=== PATIENT | female | born 1955 | race African-American/Black ===

== ENCOUNTER 2016-10-03 16:11 | Inpatient (IN) ==
[2016-10-03] MEDS ORDERED: metroNIDAZOLE INJ 500 MG in PREMIX 1 EACH IV STA (17:16)
[2016-10-03] MEDS ORDERED: CIPROFLOXACIN INJ 400 MG in PREMIX 1 EACH IV STA (17:16)
--- NOTE | 2016-10-03 17:18 | Emergency Department Note ---
Nora Lee Brittany, am scribing for, and in the presence of, Brianna Stephenson DO 16: 50. ISachin Debra, DO, personally performed the services described in this documentation, ascribed by Corry Melendez in my presence, and it is both accurate and complete . Arrival - Arrival Chief Complaint: Abdominal / Flank Pain Stated Complaint: SENT BY DR MOSS OFFICE ED Nursing Triage Note: C/o RLQ pain-onset 3 days ago. Patient was sent from Dr. Mcdonald's office for further evaluation of diverticulitis with possible abscess. Denies N/V/D. Mode of Arrival: Wheelchair Limitations: No Limitations Source: Patient - History of Present Illness HPI Narrative: This is a 60 y/o black female,who presents to the ED for further evaluation of possible diverticulitis. She states she was being seen at Dr. Cifuentes's office for abd pain which started 1 week ago, and has gotten worse over the past 3 days. She localizes the pain to the RLQ. She denies any nausea or vomiting but notes some chills and a fever. Pt has no other complains/pain in the ED at this time. Pt has a PMHx of HTN, dyslipidemia, and thyroid disorder. Pt has had a tonsilectomy, (3), and a thyroid disorder. Pt denies a family medical Hx. Pt denies a social Hx. Onset (ago): week(s) (Started last week) Consistency: constant Severity: moderate Date of Last Menstrual Period: menopause Allergies/Adverse Reactions: Allergies Allergy/AdvReac Type Severity Reaction Status Date / Time codeine AdvReac Vomiting Verified 10/03/16 16:18 Home Medications: Home Medications Medication Instructions Recorded Confirmed Type Levothyroxine Tab [Synthroid Tab] 137 mcg PO QAM 10/03/16 10/03/16 History hydroCHLOROthiazide 12.5 mg PO QAM PRN 10/03/16 10/03/16 History [Hydrochlorothiazide] Review of System - Review of System 12 point system: reviewed and no additional remarkable complaints except as stated - Review of System Constitutional: Present: chills, fever Gastrointestinal: Present: abdominal pain. Absent: nausea, vomiting Medical,Surgical,& Family Hx - Medical History Cardio: History of: Hypertension Endocrine: History of: Dyslipidemia, Thyroid Disorder - Surgical History HEENT Surgeries: Surgical HX of: Thyroid Surgery, Tonsilectomy & Adenoidectomy Abdominal Surgeries: Patient denies: Appendectomy, Cholecystectomy Reproductive Surgeries: Surgical HX of;: Section (X 3) - Social History Smoking Status: Never smoker Frequency of Alcohol Use: None Type of Drug Use: None Exam Vital Signs: Vital Signs Temperature 98.3 F 10/03/16 16:15 Pulse Rate 91 H 10/03/16 16:15 Respiratory Rate 18 10/03/16 16:15 Blood Pressure 177/92 10/03/16 16:15 O2 Sat by Pulse Oximetry 98 10/03/16 16:15 - General General appearance: alert, in no apparent distress - Head Head exam: Present: atraumatic, normocephalic, normal inspection - Eye Eye exam: Present: normal appearance, PERRL, EOMI. Absent: nystagmus, miosis, mydriasis - ENT ENT exam: Present: normal exam, normal oropharynx, mucous membranes moist, TM's normal bilaterally, normal external ear exam - Neck Neck exam: Present: normal inspection, full ROM, trachea midline. Absent: tenderness, meningismus, lymphadenopathy, thyromegaly - Chest Chest inspection: Present: normal inspection, symmetric chest wall rise. Absent : tenderness, rash, abscess - Respiratory Respiratory exam: Present: normal lung sounds bilaterally. Absent: rales, respiratory distress, rhonchi, stridor, wheezes - Cardiovascular Cardiovascular exam: Present: regular rate, normal rhythm, normal heart sounds. Absent: murmur, rubs, gallop, clicks, JVD - Abdominal Exam Abdominal exam: Present: soft, tenderness (RLQ tendenress as well as RUQ tenderness), guarding (Mild Guarding ), normal bowel sounds. Absent: distention , rebound, rigidity - Rectal Exam Rectal exam: Present: deferred - Extremities Exam Extremities exam: Present: normal inspection, full ROM, normal capillary refill. Absent: tenderness, pedal edema, joint swelling, calf tenderness - Back Exam Back exam: Present: normal inspection, full ROM. Absent: tenderness, muscle spasm, rashes - Neurological Exam Neurological exam: Present: alert, oriented X3, CN II-XII intact. Absent: motor sensory deficit - Psychiatric Psychiatric exam: Present: normal affect, normal mood. Absent: depressed, agitated, anxious, flat affect, manic - Skin Skin exam: Present: warm, dry, intact, normal color. Absent: rash, cyanosis, diaphoresis, erythema, pallor, mottled Course Course Narrative: pt will be admitted to hospitalist, is in stable condition . Disposition Clinical Impression: Diverticulitis Case discussed with: patient Disposition: Still a Patient Condition: Stable Time of Disposition: 17:18
[2016-10-03] MEDS ORDERED: metroNIDAZOLE 500 MG/100 ML PREMIX IV ONE (17:28)
[2016-10-03] MEDS ORDERED: CIPROFLOXACIN 400 MG/200 ML PREMIX IV ONE (17:28)
[2016-10-03] MEDS ORDERED: BISACODYL 5 MG TABLET PO PRN (17:59)
[2016-10-03] MEDS ORDERED: ONDANSETRON 4 MG/2 ML VIAL IV PRN (17:59)
[2016-10-03] MEDS ORDERED: ACETAMINOPHEN 325 MG TABLET PO PRN (17:59)
[2016-10-03] MEDS ORDERED: diphenhydrAMINE CAP 25 MG CAPSULE PO PRN (17:59)
[2016-10-03] MEDS ORDERED: DOCUSATE SODIUM 100 MG CAPSULE PO PRN (17:59)
[2016-10-03] MEDS ORDERED: guaiFENesin/DM ER 600-30 MG TABLET PO PRN (17:59)
[2016-10-03] MEDS ORDERED: PROMETHAZINE 25 MG/1 ML VIAL IM PRN (17:59)
[2016-10-03] MEDS ORDERED: MEPERIDINE 25 MG/1 ML VIAL IV PRN (18:10)
[2016-10-03] MEDS ORDERED: MEPERIDINE 50 MG TABLET PO PRN ×2 (18:10)
[2016-10-03] MEDS ORDERED: hydroCHLOROthiazide 12.5 MG CAPSULE PO PRN (18:12)
[2016-10-03] MEDS ORDERED: DEXTROSE 50% 25 GM/50 ML VIAL IV PRN (18:13)
[2016-10-03] MEDS ORDERED: GLUCAGON 1 MG VIAL IM PRN (18:13)
--- NOTE | 2016-10-03 18:21 | Hospitalist History & Physical ---
Assessment and Plan - Time spent with patient Time spent with patient: Greater than 30 minutes (1) Acute diverticulitis Status: Acute Assessment and plan: 60-year-old -[place] female with history of hypertension and hypothyroidism admitted by hospitalist service with acute sigmoid diverticulitis with developing phlegmon or abscess. Patient has been started on Cipro and Flagyl and clear liquid diet. She will be started on pain and nausea control medicines. Patient is n.p.o. after midnight and IR consulted for possible percutaneous drain placement in the morning. Patient's blood pressures and heart rate are elevated she takes HCTZ for home medicine. That has been started and Norvasc has been added. We will continue to monitor her blood pressures. Patient also has pitting lower extremity edema so we will discuss with Dr. Martinez about maybe adding Lasix to her regimen or if she will require further workup for this. Patient also has a solid mass on her kidney with questionable neoplasm that Dr. Pierce from nephrology has been consulted to evaluate in the morning. Dr. Martinez will see and examine the patient and further recommendations to follow. Current Visit: Yes (2) Abdominal abscess Status: Acute Current Visit: Yes (3) Pitting edema Status: Acute Current Visit: Yes (4) Hypertension Status: Acute Current Visit: Yes (5) Diabetes Status: Acute Current Visit: Yes (6) Hypothyroidism Status: Acute Current Visit: Yes (7) Right kidney mass Status: Acute Current Visit: Yes History of Present Illness Chief complaint: Abdominal pain History of present illness: Ms. Sheriff is a 60 year old female with history of hypothyroidism and hypertension presenting to the ED from Dr. Sapp's office with abdominal pain due to diverticular abscess. Patient states she started hurting about 4 or 5 days ago in the bilateral lower quadrants. This was associated with fever and malaise. Patient states she went to Dr. Sapp's office this morning where he did a CT scan that shows acute sigmoid diverticulitis with developing phlegmon and/or abscess. There is also a solid mass within the upper pole of the right kidney that could not rule out neoplasm. She also has some borderline to minimally enlarged lymph nodes within the lower para-aortic region and mesenteric lymph nodes within the root of the mesentery. The patient is afebrile on admission she is tachycardic with elevated blood pressure and she is tender in both right and left lower quadrants. She also has bilateral pitting edema of the ankles that she states is new. Her white count is minimally elevated at 11.42, blood sugars 132 with an elevated hemoglobin A1c, creatinine is normal at 0.64. Patient denies headache, dysphagia, chest pain, shortness of breath, constipation or diarrhea. Patient's case was discussed with Dr. Setphenson the ED physician and Dr. Martinez the admitting hospitalist, and it was agreed patient will be admitted for further treatment and evaluation. Home Medications Medication Instructions Recorded Confirmed Type Levothyroxine Tab [Synthroid Tab] 137 mcg PO QAM 10/03/16 10/03/16 History hydroCHLOROthiazide 12.5 mg PO QAM PRN 10/03/16 10/03/16 History [Hydrochlorothiazide] Allergies Allergy/AdvReac Type Severity Reaction Status Date / Time codeine AdvReac Vomiting Verified 10/03/16 16:18 Medical,Surgical,& Family Hx - Medical History Cardio: History of: Hypertension Endocrine: History of: Diabetes Mellitus (NIDDM), Dyslipidemia, Thyroid Disorder - Surgical History HEENT Surgeries: Surgical HX of: Thyroid Surgery, Tonsilectomy & Adenoidectomy Abdominal Surgeries: Patient denies: Appendectomy, Cholecystectomy Reproductive Surgeries: Surgical HX of;: Section (X 3) - Family History Family History: Reports;: Family Heart Disease - Social History Smoking Status: Never smoker Frequency of Alcohol Use: None Type of Drug Use: None Marital Status: Lives With:: Spouse Functional capacity: independent ambulation Review of systems: A complete 10 system review of systems was obtained and pertinent positives and negatives per HPI Exam - Constitutional Exam: Constitutional System: No distress. [No] tremulousness. Head: Normocephalic, atraumatic. Ears, Nose and Throat System: No evidence of Otitis or Mastoiditis. No epistaxis or discharge Eyes System: Pupils equal, round, and reactive. Extraocular muscles intact. Neck: Supple, without adenopathy, [No] jugular venous distention. No thyromegaly , neck mass, Respiratory System: Chest [clear] to auscultation. Cardiovascular System: Heart with tachycardic rate and rhythm. [No] murmur. GI System: Abdomen [soft], tender to palpation in left greater than right quadrant. [Normo]active bowel sounds present. Musculoskeletal System: limbs with 2+ pitting pedal edema. Unable to palpate distal pulses due to edema. Neurological System: [No discernable] sensory deficit. [No] aphasia Psychiatric System: Conversation is [rational] Results - Labs Lab Results: I have reviewed the past 24 hour labs Labs: Labs from Dr. Cifuentes's office white blood cell 11.42, H&H 10.9/37.4, UA with trace leukocytes, blood glucose 132, creatinine 0.64, sodium 139, potassium 4.1, lipid panel normal, hemoglobin A1c 6.8 - Diagnostic Findings Procedure: CT Abdomen and Pelvis: report reviewed by me (Acute sigmoid diverticulitis with developing phlegmon or abscess. Solid mass within the upper pole of right kidney cannot rule out renal cell carcinoma. Borderline to minimally enlarged lymph nodes in the left para-aortic region and mesenteric region.)
[2016-10-03] MEDS: SODIUM CHLORIDE 0.9% 1,000 ML IV STA ×2 (20:28→21:00)
[2016-10-03] MEDS: ENOXAPARIN 40 MG/0.4 ML SYRINGE SUBCUT SCH ×2 (21:01→21:08)
[2016-10-03] MEDS: PIPERACILLIN/TAZOBACTAM 3,375 MG in SODIUM CHLORIDE 0.9% 100 ML IV SCH (21:01)
[2016-10-03] MEDS: SODIUM CHLORIDE 0.9% 1,000 ML IV SCH (21:02)
[2016-10-03] MEDS: INSULIN REGULAR 100 UNIT/ML SUBCUT SCH (21:38)
[2016-10-04] MEDS ORDERED: metroNIDAZOLE INJ 500 MG in PREMIX 1 EACH IV SCH
[2016-10-04] MEDS ORDERED: CIPROFLOXACIN INJ 400 MG in PREMIX 1 EACH IV SCH (02:00)
[2016-10-04] MEDS: SODIUM CHLORIDE 0.9% 1,000 ML IV SCH ×3 (02:27→22:44)
[2016-10-04] MEDS: PIPERACILLIN/TAZOBACTAM 3,375 MG in SODIUM CHLORIDE 0.9% 100 ML IV SCH ×3 (05:00→21:30)
[2016-10-04 07:33] LABS: Basophils % 0.1 % (0.0-0.8); Eosinophils # 0.1 10*3/uL (0.0-0.87); Eosinophils % 0.8 % (0.00-10.9); Hematocrit 34.6 VOL% (35.7-47.0); Hemoglobin 10.6 GM/DL (12.0-16.0); Immature Granulocytes % 0.4 %; Immature Granulocytes Absolute 0.04 #; Lymphocytes # 1.4 10*3/uL (1.4-4.0); Lymphocytes % 12.9 % (21.3-54.2); Mean Corpuscular HGB Conc 30.6 GM/DL (32-36); Mean Corpuscular Hemoglobin 24 PG (27-34); Mean Corpuscular Volume 78.8 FL (87-102); Mean Platelet Volume 9.9 FL (9.6-12.0); Monocytes # 0.7 10*3/uL (0.11-0.8); Monocytes % 6.8 % (1.7-12.7); Neutrophils # 8.4 10*3/uL (1.4-7.4); Platelet Count 345 T/CUMM (130-400); Red Blood Count 4.39 MC/CUMM (3.8-5.5); Red Cell Distribution Width 16.2 % (9.3-17.3); White Blood Count 10.6 T/CUMM (4-12)
--- NOTE | 2016-10-04 08:00 | General Surgery Consult Note ---
Assessment and Plan (1) Acute diverticulitis Status: Acute Assessment and plan: Associated with abscess/phlegmon formation. At this point, interventional radiology has been consulted for percutaneous drainage and the patient is clinically responding to IV antibiotics. Dr. Kennedy to follow with assessment and further recommendations as warranted. Current Visit: Yes History of Present Illness Chief complaint: Abdominal pain History of present illness: Ms. Sheriff is a 60 year old female with past medical history of hypertension, hypothyroidism, and sleep apnea who had no diverticulosis with no history of diverticulitis flare who was presenting to her primary care office yesterday for routine health assessment at which time she complained of progressive lower abdominal pain over the past 4-5 days associated with subjective fever and malaise. The patient denies nausea or vomiting. She reports cyclical diarrhea and constipation currently with loose stools. The patient reports since admission her pain has improved with virtual resolution of the right lower quadrant pain which has now more localized to the left lower quadrant. Clinic chart was sent with the patient for admission after CT scan revealed diverticulitis with abscess formation. Clinic tricuspid when she reviewed with CBC with differential BC 11.4, hemoglobin 10.9 and platelets 356. BMP was unremarkable. Urinalysis with trace leukocyte esterase, trace bacteria, and 2- 5 white blood cells per high-power field. A renal mass was also incidentally noted for which nephrology has been consulted. Home Medications Medication Instructions Recorded Confirmed Type Levothyroxine Tab [Synthroid Tab] 137 mcg PO QAM 10/03/16 10/03/16 History hydroCHLOROthiazide 12.5 mg PO QAM PRN 10/03/16 10/03/16 History [Hydrochlorothiazide] Allergies Allergy/AdvReac Type Severity Reaction Status Date / Time codeine AdvReac Vomiting Verified 10/03/16 16:18 Medical,Surgical,& Family Hx - Medical History Cardio: History of: Hypertension Endocrine: History of: Diabetes Mellitus (NIDDM), Dyslipidemia, Thyroid Disorder Respiratory: History of: Obstructive Sleep Apnea (noncompliant cpap) - Surgical History HEENT Surgeries: Surgical HX of: Thyroid Surgery, Tonsilectomy & Adenoidectomy Abdominal Surgeries: Patient denies: Abdominal Surgery, Appendectomy, Cholecystectomy Reproductive Surgeries: Surgical HX of;: Section (X 3) - Family History Family History: Reports;: Family Heart Disease, Family Stroke - Social History Smoking Status: Never smoker Frequency of Alcohol Use: None Type of Drug Use: None Marital Status: Functional capacity: independent ambulation - Constitutional Constitutional: Present: as per HPI - Respiratory Respiratory: Absent: cough, wheezing - Gastrointestinal Gastrointestinal: Present: as per HPI. Absent: hematochezia, melena - Genitourinary Genitourinary: Absent: dysuria, flank pain - Musculoskeletal Musculoskeletal: Absent: arthralgias Hematologic/Lymphatic: Absent: easy bleeding, easy bruising Exam - Constitutional Vitals: Period Temp Pulse Resp BP Sys/Sidhu Pulse Ox Last 24 Hr 97.9 F-99.0 F 89-97 18-18 139-162/74-97 95-97 General appearance: no acute distress - Head Head exam: Present: normal inspection, normocephalic, atraumatic - Eye Eye exam: Absent: conjunctival injection, scleral icterus - Neck Neck exam: Present: normal inspection - Respiratory Respiratory exam: Present: clear to auscultation bilaterally - Cardiovascular Cardiovascular exam: Present: RRR - GI/Abdominal GI/Abdominal exam: Present: normal bowel sounds, tenderness (LLQ moderate tenderness; no rebound), soft. Absent: distended - Extremities Exam Extremities exam: Absent: calf tenderness, edema - Neurological Exam Neurological exam: Present: alert, oriented X3 Speech: Present: normal - Skin Skin exam: Present: normal color, warm Quality Measures - Stroke Symptom Onset Unknown: No Results - Labs CBC & BMP: 10/04/16 05:47 - Diagnostic Findings Procedure: CT Abdomen and Pelvis: image reviewed by me, report reviewed by me ( sigmoid diverticulitis noted with likely abscess formation x 2; lymphadenopathy noted )
[2016-10-04 08:05] LABS: Albumin 2.8 G/DL (3.4-5.0); Bilirubin,Total 0.6 MG/DL (0.2-1.0); Calcium 8.1 MG/DL (8.5-10.1); Magnesium 2.4 MG/DL (1.8-2.4); Osmolality,Calculated 278.3 MOS/KG (273-304); Potassium 4.1 MMOL/L (3.5-5.1)
--- NOTE | 2016-10-04 08:54 | Nephrology Progress Note ---
Nephrology - PN: Subj Interval history: Was asked to see the patient for a renal mass on her right kidney. I am going to consult urology as they would be more appropriate to evaluate this lesion be happy to see down the road as needed. Exam (PN)-Nephrology - Vital Signs Vital signs: Period Temp Pulse Resp BP Sys/Sidhu Pulse Ox Last 24 Hr 97.9 F-99.0 F 89-97 18-18 139-162/74-97 95-97 - Lab 10/04/16 05:47 10/04/16 05:47 Most recent lab results Calcium 8.1 MG/DL (8.5-10.1) L 10/04/16 05:47 Magnesium 2.4 MG/DL (1.8-2.4) 10/04/16 05:47
--- NOTE | 2016-10-04 09:21 | Event Note ---
60-year-old female with severe diverticulitis of the sigmoid colon, consisting mostly of relatively large phlegmon in the pelvis, involving the superior dome of the uterus and sigmoid colon. There are 2 small fluid collections within this area phlegmasia, largest just under 3 cm diameter. We were asked by hospitalist service to place percutaneous drain. 2 issues with this plan include the lack of consolidation of abscess development in this area of inflammation, as well as the presence of bowel between the skin and target area. After discussing the case with general surgery, Dr. Kennedy, we decided to pursue antibiotic therapy in the hopes of primary resolution without intervention. One of 2 things will occur, either the inflammation will resolve , or the phlegmasia should coalesce into a more defined abscess pocket for drainage. Should the latter occur, we will be glad to provide percutaneous drainage if a adequate window for safe access is identified at the time of the procedure between the skin and abscess. In addition to the diverticulitis issue, there is also a 14 mm hypodense lesion at the upper pole the right kidney that measures 66 Hounsfield units during arterial phase, and 75 Hounsfield units on the delayed phase. This may represent enhancement with gradual wash-in, or may represent a relatively nonenhancing lesion. Therefore, the benignity of this lesion is indeterminate on CT imaging, and if biopsy is a consideration, consider ultrasound and MRI evaluation first.
[2016-10-04] MEDS: INSULIN REGULAR 100 UNIT/ML SUBCUT SCH ×2 (09:34→18:47)
[2016-10-04] MEDS: amLODIPine 5 MG TABLET PO SCH (09:46)
[2016-10-04] MEDS: LEVOTHYROXINE 137 MCG TABLET PO SCH (09:54)
[2016-10-04] MEDS: PANTOPRAZOLE 40 MG TABLET PO SCH (09:54)
--- NOTE | 2016-10-04 13:38 | Hospitalist Progress Note ---
Assessment and Plan (1) Acute diverticulitis Status: Acute Assessment and plan: The patient is admitted to the hospital with acute diverticulitis. He has some evidence of microperforation and a collection of small abscess. Patient will be treated with IV antibiotics and we will attempt to cool off the inflammatory process for now. We will continue to observe for possibility of surgery this week. Current Visit: Yes (2) Abdominal abscess Status: Acute Current Visit: Yes (3) Diabetes Status: Acute Current Visit: Yes Hospitalist: Subjective Interval history: The patient was admitted to hospital with left lower quadrant abdominal pain consistent with diverticulitis. The patient has incremental improvement overnight with hydration and antibiotic. Exam - Constitutional Vitals: Period Temp Pulse Resp BP Sys/Sidhu Pulse Ox Last 24 Hr 97.9 F-99.0 F 80-97 18-20 139-162/74-97 95-97 General appearance: mild distress - Head Head exam: Present: normocephalic - Respiratory Respiratory exam: Present: clear to auscultation bilaterally - GI/Abdominal GI/Abdominal exam: Present: tenderness (Left lower quadrant) Results - Labs CBC & BMP: 10/04/16 05:47 10/04/16 05:47 Lab Results: I have reviewed the past 24 hour labs Quality Measures - Stroke Symptom Onset Unknown: No
[2016-10-04] MEDS: ENOXAPARIN 40 MG/0.4 ML SYRINGE SUBCUT SCH (18:54)
[2016-10-05 04:22] LABS: Basophils % 0.2 % (0.0-0.8); Eosinophils # 0.1 10*3/uL (0.0-0.87); Eosinophils % 1.2 % (0.00-10.9); Hematocrit 37.2 VOL% (35.7-47.0); Hemoglobin 11.4 GM/DL (12.0-16.0); Immature Granulocytes % 0.7 %; Immature Granulocytes Absolute 0.07 #; Lymphocytes # 1.6 10*3/uL (1.4-4.0); Lymphocytes % 16.1 % (21.3-54.2); Mean Corpuscular HGB Conc 30.6 GM/DL (32-36); Mean Corpuscular Hemoglobin 25 PG (27-34); Mean Platelet Volume 9.9 FL (9.6-12.0); Monocytes # 0.7 10*3/uL (0.11-0.8); Monocytes % 7.6 % (1.7-12.7); Neutrophils # 7.2 10*3/uL (1.4-7.4); Neutrophils % 74.2 % (38.7-73.9); Platelet Count 344 T/CUMM (130-400); Red Blood Count 4.65 MC/CUMM (3.8-5.5); Red Cell Distribution Width 16.1 % (9.3-17.3); White Blood Count 9.8 T/CUMM (4-12)
[2016-10-05] MEDS: PIPERACILLIN/TAZOBACTAM 3,375 MG in SODIUM CHLORIDE 0.9% 100 ML IV SCH ×3 (04:48→21:04)
[2016-10-05 04:54] LABS: Calcium 8.6 MG/DL (8.5-10.1)
[2016-10-05 04:55] LABS: Magnesium 2.2 MG/DL (1.8-2.4); Osmolality,Calculated 275.3 MOS/KG (273-304); Potassium 3.7 MMOL/L (3.5-5.1)
[2016-10-05] MEDS: INSULIN REGULAR 100 UNIT/ML SUBCUT SCH ×2 (08:29→19:02)
[2016-10-05] MEDS: PANTOPRAZOLE 40 MG TABLET PO SCH (10:06)
[2016-10-05] MEDS: LEVOTHYROXINE 137 MCG TABLET PO SCH (10:06)
[2016-10-05] MEDS: amLODIPine 5 MG TABLET PO SCH (10:06)
--- NOTE | 2016-10-05 10:18 | Hospitalist Progress Note ---
Assessment and Plan (1) Acute diverticulitis Status: Acute Assessment and plan: The patient is admitted to the hospital with acute diverticulitis. He has some evidence of microperforation and a collection of small abscess. Patient will continue treatment with IV antibiotics and we will attempt to cool off the inflammatory process for now. We will continue to observe for possibility of surgery this week. The patient is ready to take clear liquids Current Visit: Yes (2) Abdominal abscess Status: Acute Current Visit: Yes (3) Diabetes Status: Acute Current Visit: Yes Hospitalist: Subjective Interval history: The patient continues with treatment of diverticulitis and is receiving IV antibiotics. The patient has less pain and is hungry. The patient has no shortness of breath. Exam - Constitutional Vitals: Period Temp Pulse Resp BP Sys/Sidhu Pulse Ox Last 24 Hr 97.4 F-98.7 F 64-90 18-20 135-166/71-84 95-99 - GI/Abdominal GI/Abdominal exam: Present: hypoactive bowel sounds, tenderness (Mild generalized). Absent: distended, firm, guarding Results - Labs CBC & BMP: 10/05/16 03:03 10/05/16 03:03 Lab Results: I have reviewed the past 24 hour labs Quality Measures - Stroke Symptom Onset Unknown: No
--- NOTE | 2016-10-05 11:26 | General Surgery Progress Note ---
Assessment and Plan (1) Acute diverticulitis Status: Acute Assessment and plan: The patient is responding well to antibiotics. We will place her on a liquid diet today and see how she does over the weekend. Current Visit: Yes Subjective Patient reports: Present: no new complaints, feels better, pain is less, flatus , no bowel movement, afebrile. Absent: nausea, vomiting Exam - Constitutional Vitals: Period Temp Pulse Resp BP Sys/Sidhu Pulse Ox Last 24 Hr 97.4 F-98.7 F 64-90 18-20 135-166/71-84 95-99 General appearance: no acute distress, morbidly obese - Head Head exam: Present: normal inspection, normocephalic - Eye Eye exam: Present: EOMI. Absent: scleral icterus Pupils: Present: [place] - ENT ENT exam: Present: normal exam - Neck Neck exam: Present: normal inspection, trachea midline - Respiratory Respiratory exam: Present: clear to auscultation bilaterally. Absent: accessory muscle use, chest wall tenderness - Cardiovascular Cardiovascular exam: Present: RRR. Absent: systolic murmur, tachycardia - GI/Abdominal GI/Abdominal exam: Present: normal bowel sounds, tenderness (Tenderness is significantly improved), soft. Absent: guarding, rebound - Extremities Exam Extremities exam: Present: normal inspection, normal capillary refill - Back Exam Back exam: Present: normal inspection - Neurological Exam Neurological exam: Present: alert, oriented X3 Speech: Present: normal - Skin Skin exam: Present: normal color, warm Results - Labs CBC & BMP: 10/05/16 03:03 10/05/16 03:03 Quality Measures - Stroke Symptom Onset Unknown: No
--- NOTE | 2016-10-05 12:41 | Urology Consultation ---
Assessment and Plan - Time spent with patient Time spent with patient: Greater than 30 minutes (1) Right kidney mass Status: Acute Assessment and plan: This is a solid renal mass. I am going to initially observe this. It is in a difficult area to biopsy and I do not think a biopsy is necessary. If this enlarges in the next 6 months or so we will seriously consider partial nephrectomy. Current Visit: Yes History of Present Illness - Data of Consult Patient: new to practice Consult date: 10/05/16 Requesting Physician: Jakub Pierce - Consult Narrative Reason for consult: Right renal mass History of present illness: Ms. Sheriff is a 60 year old female who was admitted with abdominal pain found to have a diverticular abscess. At this point, they are planning medical treatment. But Dr. Kennedy is on the case and surgery has not been completely ruled out. In her evaluation she was found to have a 17 mm right upper pole solid renal mass. She denies previous problems. The only problem she had in the past was cystitis when she was young woman. There is no family history carcinoma the kidney or other malignancies. She does not and has not had hematuria. She denies right flank pain. I reviewed her CT scan. She does have a solid 17 mm mainly endophytic renal mass that is probably a small carcinoma. We are going to observe this. It is a very difficult place to get a biopsy. So I do not recommend that. She needs to recover from the diverticular abscess. I will make her an appointment see me in the office in 1 month. Initially were going to observe this. If it enlarges in the next 6 months then we will discuss a partial nephrectomy. CC: Louis Sanchez MD - Home Medications and Allergies Home Medications: Home Medications Medication Instructions Recorded Confirmed Type Levothyroxine Tab [Synthroid Tab] 137 mcg PO QAM 10/03/16 10/03/16 History hydroCHLOROthiazide 12.5 mg PO QAM PRN 10/03/16 10/03/16 History [Hydrochlorothiazide] Allergies/Adverse Reactions: Allergies Allergy/AdvReac Type Severity Reaction Status Date / Time codeine AdvReac Vomiting Verified 10/03/16 16:18 12 point system: reviewed and no additional remarkable complaints except as stated - Gastrointestinal Gastrointestinal: Absent: abdominal pain, bloating, change in bowel habits, hematochezia, vomiting, jaundice - Genitourinary Genitourinary: Absent: abnormal vaginal bleeding, difficulty urinating, dysuria , flank pain, hematuria, urinary frequency, urinary hesitancy, urinary incontinence Exam - Constitutional Vitals: Period Temp Pulse Resp BP Sys/Sidhu Pulse Ox Last 24 Hr 97.4 F-98.7 F 64-90 18-20 135-168/71-84 95-99 - GI/Abdominal GI/Abdominal exam: Present: normal bowel sounds, hernia (Umbilical), soft, other (No CVA tenderness, healed lower midline. ). Absent: ascites, distended, firm, guarding, mass, psoas sign, tenderness, rebound - Genitourinary Genitourinary: external genitalia normal Results - Labs CBC & BMP: 10/05/16 03:03 10/05/16 03:03 Lab Results: I have reviewed the past 24 hour labs - Diagnostic Findings Procedure: CT Abdomen and Pelvis: image reviewed by me, report reviewed by me ( Mainly endophytic)
[2016-10-05] MEDS: DEXTROSE 5% NACL 0.9% 1,000 ML IV SCH ×2 (12:47→21:07)
[2016-10-05] MEDS: ENOXAPARIN 40 MG/0.4 ML SYRINGE SUBCUT SCH (18:45)
[2016-10-06] MEDS: DEXTROSE 5% NACL 0.9% 1,000 ML IV SCH (05:56)
[2016-10-06] MEDS: PIPERACILLIN/TAZOBACTAM 3,375 MG in SODIUM CHLORIDE 0.9% 100 ML IV SCH (05:56)
[2016-10-06] MEDS: INSULIN REGULAR 100 UNIT/ML SUBCUT SCH ×2 (07:30→16:39)
[2016-10-06] MEDS: amLODIPine 5 MG TABLET PO SCH (08:49)
[2016-10-06] MEDS: PANTOPRAZOLE 40 MG TABLET PO SCH (08:49)
[2016-10-06] MEDS: LEVOTHYROXINE 137 MCG TABLET PO SCH (08:49)
--- NOTE | 2016-10-06 12:16 | General Surgery Progress Note ---
Assessment and Plan (1) Acute diverticulitis Status: Acute Assessment and plan: Patient has responded well to antibiotic therapy. Her diet has been advanced to low residue diet and her IV fluids have been discontinued. I have transitioned her to p.o. antibiotics. We can plan for discharge home tomorrow if she is doing well. Current Visit: Yes Subjective Patient reports: Present: no new complaints, feels better, pain is less, flatus , no bowel movement, afebrile Narrative: The patient feels much better today. She tolerated liquids with no nausea or vomiting yesterday. She is afebrile. Pain is almost gone. Exam - Constitutional Vitals: Period Temp Pulse Resp BP Sys/Sidhu Pulse Ox Last 24 Hr 97.1 F-98.4 F 68-85 16-18 126-160/64-82 95-99 General appearance: no acute distress, morbidly obese - Head Head exam: Present: normal inspection, normocephalic - Eye Eye exam: Present: EOMI. Absent: scleral icterus Pupils: Present: MILTON - ENT ENT exam: Present: normal exam Mouth exam: Present: normal external inspection, normal voice - Neck Neck exam: Present: normal inspection, trachea midline - Respiratory Respiratory exam: Present: clear to auscultation bilaterally. Absent: accessory muscle use, chest wall tenderness - Cardiovascular Cardiovascular exam: Present: RRR. Absent: systolic murmur, tachycardia - GI/Abdominal GI/Abdominal exam: Present: normal bowel sounds, soft. Absent: tenderness, rebound - Extremities Exam Extremities exam: Present: normal inspection, normal capillary refill - Back Exam Back exam: Present: normal inspection - Neurological Exam Neurological exam: Present: alert, oriented X3 Speech: Present: normal - Skin Skin exam: Present: normal color, warm Results - Labs CBC & BMP: 10/05/16 03:03 10/05/16 03:03 Quality Measures - Stroke Symptom Onset Unknown: No Specialty Discharge - Follow Up or Referrals Follow up with: Srinivas Armenta MD [Physician] - 1 Month
--- NOTE | 2016-10-06 12:20 | Hospitalist Progress Note ---
Assessment and Plan (1) Acute diverticulitis Status: Acute Assessment and plan: The patient is admitted to the hospital with acute diverticulitis. SHe has some evidence of microperforation and a collection of small abscess. Patient will continue treatment with IV antibiotics and we are succeeding to cool off the inflammatory process for now. The patient is ready to advance her diet. The patient might go home as early as tomorrow to take oral antibiotic pills. Current Visit: Yes (2) Abdominal abscess Status: Acute Current Visit: Yes (3) Diabetes Status: Acute Current Visit: Yes Hospitalist: Subjective Interval history: The patient has less abdominal pain, no fever, and tolerating liquids. Exam - Constitutional Vitals: Period Temp Pulse Resp BP Sys/Sidhu Pulse Ox Last 24 Hr 97.1 F-98.4 F 68-85 16-18 126-160/64-82 95-99 General appearance: no acute distress - Respiratory Respiratory exam: Present: clear to auscultation bilaterally - Cardiovascular Cardiovascular exam: Present: regular rate and rhythm - GI/Abdominal GI/Abdominal exam: Present: normal bowel sounds. Absent: tenderness, rebound Results - Labs CBC & BMP: 10/05/16 03:03 10/05/16 03:03 Lab Results: I have reviewed the past 24 hour labs Quality Measures - Stroke Symptom Onset Unknown: No Specialty Discharge - Follow Up or Referrals Follow up with: Srinivas Armenta MD [Physician] - 1 Month
[2016-10-06] MEDS: CIPROFLOXACIN 500 MG TABLET PO SCH ×2 (12:32→21:35)
[2016-10-06] MEDS: metroNIDAZOLE 500 MG TABLET PO SCH ×2 (16:38→21:35)
[2016-10-06] MEDS: ENOXAPARIN 40 MG/0.4 ML SYRINGE SUBCUT SCH (17:43)
--- NOTE | 2016-10-07 07:19 | General Surgery Progress Note ---
Assessment and Plan (1) Acute diverticulitis Status: Acute Assessment and plan: The patient is ready for discharge. The small amount of bleeding she is having her bowel movements is probably just from some inflammatory changes where the infection is but if she does well she certainly will need a colonoscopy to rule out an underlying malignancy at this location. I will see her back in clinic in 2 weeks and the completion of her antibiotics and if she is having any problems at that time we will rescan her. I would recommend going home on her current antibiotics for 2 weeks. Current Visit: Yes Subjective Patient reports: Present: no new complaints, feels better, pain is less, tolerating a regular diet, flatus, bowel movement, blood in stool, afebrile Narrative: The patient had some sour feeling on her stomach last night after she ate dinner but this has not returned and she really has no abdominal pain. She has no fevers. No nausea or vomiting. She is having a small amount of blood in her bowel movements but nothing that is real significant Exam - Constitutional Vitals: Period Temp Pulse Resp BP Sys/Sidhu Pulse Ox Last 24 Hr 96.9 F-98.4 F 71-80 17-20 121-145/67-88 97-98 General appearance: no acute distress, morbidly obese - Head Head exam: Present: normal inspection, normocephalic - Eye Eye exam: Present: EOMI. Absent: scleral icterus Pupils: Present: MILTON - ENT ENT exam: Present: normal exam Mouth exam: Present: normal external inspection, normal voice - Neck Neck exam: Present: normal inspection, trachea midline - Respiratory Respiratory exam: Present: clear to auscultation bilaterally. Absent: accessory muscle use, chest wall tenderness - Cardiovascular Cardiovascular exam: Present: RRR. Absent: systolic murmur, tachycardia - GI/Abdominal GI/Abdominal exam: Present: normal bowel sounds, soft. Absent: tenderness, rebound - Extremities Exam Extremities exam: Present: normal inspection, normal capillary refill - Back Exam Back exam: Present: normal inspection - Neurological Exam Neurological exam: Present: alert, oriented X3 Speech: Present: normal - Skin Skin exam: Present: normal color, warm Results - Labs CBC & BMP: 10/05/16 03:03 10/05/16 03:03 Quality Measures - Stroke Symptom Onset Unknown: No Specialty Discharge - Follow Up or Referrals Follow up with: Srinivas Armenta MD [Physician] - 1 Month Andrew Kennedy MD [Physician] - 2 Weeks
[2016-10-07] MEDS: INSULIN REGULAR 100 UNIT/ML SUBCUT SCH (08:27)
[2016-10-07 09:20] LABS: Hematocrit 39.2 VOL% (35.7-47.0); Hemoglobin 11.7 GM/DL (12.0-16.0)
[2016-10-07] MEDS: PANTOPRAZOLE 40 MG TABLET PO SCH (10:22)
[2016-10-07] MEDS: LEVOTHYROXINE 137 MCG TABLET PO SCH (10:22)
[2016-10-07] MEDS: metroNIDAZOLE 500 MG TABLET PO SCH (10:22)
[2016-10-07] MEDS: CIPROFLOXACIN 500 MG TABLET PO SCH (10:22)
[2016-10-07] MEDS: amLODIPine 5 MG TABLET PO SCH (10:22)
[2016-10-07 11:30] VITALS: BP 132/79
--- NOTE | 2016-10-07 11:46 | Discharge Summary ---
Hospital Course - Hospital Course Hospital Course: Ms. Sheriff is a 60 year old female with history of hypothyroidism and hypertension presented with bilateral lower quadrant pain patient reported to me that she has more right lower quadrant pain she did point all lower part of the abdomen. She denied any urinary symptoms there was associated fever and malaise. No nausea vomiting. She was evaluated with a CT scan which revealed right sigmoid diverticulitis with abscess formation. There was also report of right upper lobe kidney mass. Patient was started on IV antibiotics but later switched to p.o. ciprofloxacin and Flagyl. Patient is symptomatically improved afebrile. A small amount of discoloration in the stool no stacie bleeding. Her hemoglobin hematocrit is stable she had a colonoscopy 2 years ago. She will Noted patient had a urine culture done at office and it showed E. coli resistant to Cipro. I will change Cipro to Bactrim and continue the treatment for the Bactrim and Flagyl and follow-up with the Dr. Kennedy. Patient was also see Dr. Armenta to follow on renal mass patient. Patient was seen as a consult by Dr. Srinivas Armenta and has suggested outpatient follow-up. During the hospital stay patient was also started on amlodipine for hypertension H will be continued patient is asked to follow-up with the primary care. Patient has received maximum benefit from hospitalization of discharge with a follow-up as mentioned above Diagnosis - Discharge Diagnosis (1) Abdominal abscess Status: Acute (2) Acute diverticulitis Status: Acute (3) Hypertension Status: Acute (4) Hypothyroidism Status: Acute (5) Right kidney mass Status: Acute (6) UTI (urinary tract infection) Status: Acute Specialty Discharge - Follow Up or Referrals Follow up with: Andrew Kennedy MD [Physician] - 10/21/16 1:45 pm Srinivas Armenta MD [Physician] - 11/12/16 2:15 pm Discharge Plan - Discharge Data Disposition: Disch To Home/Self Care Condition at Discharge: Stable Discharge Diet: advance to your usual diet Activity: resume usual activities as tolerated - Discharge Medications New metroNIDAZOLE TAB [Flagyl Cap/Tab] 500 mg PO TID #42 tablet amLODIPine [Norvasc] 5 mg PO DAILY #30 tablet Continue hydroCHLOROthiazide [Hydrochlorothiazide] 12.5 mg PO QAM PRN PRN Reason: Edema Levothyroxine Tab [Synthroid Tab] 137 mcg PO QAM Sulfameth/Trimeth 400-80 Tab [Bactrim Tab] 1 tablet PO BID #28 tablet - Follow Up or Referral Follow Up: Andrew Kennedy MD [Physician] - 10/21/16 1:45 pm Srinivas Armenta MD [Physician] - 11/12/16 2:15 pm - Forms/Instructions Instructions: Diverticulitis (DC), Abscess (GEN) Exam - Constitutional Vitals: Period Temp Pulse Resp BP Sys/Sidhu Pulse Ox Last 24 Hr 96.9 F-98.4 F 71-80 17-20 121-145/67-88 96-98 General appearance: no acute distress - Respiratory Respiratory exam: Present: clear to auscultation bilaterally. Absent: rales, rhonchi - Cardiovascular Cardiovascular exam: Present: regular rate and rhythm. Absent: tachycardia - GI/Abdominal GI/Abdominal exam: Present: normal bowel sounds, soft. Absent: distended, tenderness - Extremities Exam Extremities exam: Absent: edema - Neurological Exam Neurological exam: Present: alert, oriented X3 Discharge Results Procedures and tests throughout hospitalization: Pending Orders 10/08/16 04:00 Basic Metabolic Panel IN AM CBC [Comp Blood Count Auto Diff] IN AM Labs on day of discharge: Labs from last 24 hours 10/07/16 10/07/16 10/06/16 08:57 07:20 21:50 Hgb 11.7 L Hct 39.2 POC Glucose 116 H 166 H 10/06/16 15:13 Hgb Hct POC Glucose 121 H DS: Provider Date of admission: 10/03/16 17:27 Primary care physician: . No PCP Attending physician on admission: Ferdinand Rojo MD Consults: 10/03/16 17:59 Consult to Physician [CONS] Routine Comment: solid mass right kidney, ?neoplasm Consulting Provider: Jakub Pierce Consulting Provider Notified: Yes When should Consulting Provider be notified: In am Person Notified: adarsh called Date Notified: 10/04/16 Time Notified: 07:56 10/03/16 20:33 Consult to Physician [CONS] Routine Comment: diverticulitis with perforation and abscess Consulting Provider: Andrew Kennedy Consulting Provider Notified: Yes When should Consulting Provider be notified: Now Consult to Specialist Group: Surgery When should Consulting Provider be notified: In am Person Notified: Dr Kennedy notified Date Notified: 10/04/16 Time Notified: 07:24 Consult Notification Comment: mary called with room number 10/04/16 08:54 Consult to Physician [CONS] Routine Comment: Urology for right renal mass by contrasted CT Consulting Provider: Srinivas Armenta Consulting Provider Notified: Yes When should Consulting Provider be notified: Now Person Notified: abimael called Date Notified: 10/04/16 Time Notified: 09:04 Discharging clinician: Josh Alvarez MD
== END 2016-10-07 14:00 | disposition home or self-care (01) | DRG 392 ==
LOC: N.ED 16:11 → N.EDINP 17:27 → SUATTDRO 17:27 → N.EDINP 18:26 → N.3E 18:36
PROVIDERS: ADMIT Family Medicine; ATTEND Internal Medicine